=== PATIENT | female | born 1990 | race Caucasian/White ===

== ENCOUNTER 2017-09-17 17:44 | Emergency (ER) | payer OTHER ==
[~2017-09-17] VITALS: Ht 165.1 cm; Wt 120.2 kg
[~2017-09-17 17:44] MED LIST: AMIT-106 PO; FLU60SYR30 IM ONLY; KETO30CA16 IM; MECL12.5 PO; OFLO5DRO45 OT; ONDA4TAB PO; [UNRECOGNIZED DRUG - OTHER]
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
[2017-09-17] MEDS ORDERED: ONDA4TAB97 PO (18:04)
[2017-09-17] MEDS ORDERED: NS(*) 0.9% 1000 ML BAG 1,000 ML IV ONE (18:08)
[2017-09-17] MEDS ORDERED: diphenhydrAMINE 50 MG/ML VIAL IVP ONE (18:10)
[2017-09-17] MEDS ORDERED: PROMETHAZINE 25 MG/ML 1 ML AMP IVP ONE (18:10)
[2017-09-17] MEDS ORDERED: DEXAMETHASONE SOD PHOS 10MG/ML IVP ONE (18:10)
[2017-09-17] MEDS ORDERED: ORPHENADRINE 60MG/2ML INJ IVP ONE (18:10)
[2017-09-17] MEDS ORDERED: KETOROLAC 30 MG/ML VIAL IVP ONE (18:10)
[2017-09-17 18:40] LABS: PLATELET COUNT, AUTOMATED 314 K/uL (150-450)
[2017-09-17 19:00] VITALS: BP 112/80
[2017-09-17] MEDS ORDERED: MORPHINE 2 MG/ML SYR IVP ONE (19:10)
[2017-09-17] MEDS ORDERED: TRAM-420 PO (19:35)
[2017-09-17] MEDS ORDERED: PROM-110 PO (19:35)
== END 2017-09-17 19:50 | disposition home or self-care (01) ==
LOC: ER 18:13
DX: G43.919 Migraine, unspecified, intractable, without status migrainosus (principal); F07.81 Postconcussional syndrome
CPT/HCPCS: 84703; 85025; 85651; 96361; 96374; 96375; 99284; J1100; J1200; J1885; J2270; J2360; J2550; J7030; 82040; 82247; 82310; 82374; 82435; 82565; 82947; 84075; 84132; 84155; 84295; 84450; 84460; 84520

== ENCOUNTER → 2018-04-08 | Outpatient (CLI) | payer OTHER ==
[~2018-04-08] MED LIST changes: +AMIT-108 PO; +HPV0.5VI IM; +IBUP-136 PO; +NORE0.3536 PO; +ONDA4TAB97 PO; +PROM-110 PO; +SCOT TD; +TRAM-420 PO
== END ==
LOC: LAB 10:07
PROVIDERS: ATTEND Nurse Practitioner Primary Care
DX: Z00.00 Encounter for general adult medical examination without abnormal findings (principal)
CPT/HCPCS: 87491; 87591